=== PATIENT | female | born 1995 | race Asian ===

== ENCOUNTER 2022-01-29 20:35 | Emergency (ER) | payer OTHER ==
[~2022-01-29] VITALS: Ht 170.2 cm; Wt 92.5 kg
[2022-01-29 20:39] VITALS: TEMP 97.6
[2022-01-29 21:35] LABS: PLATELET COUNT 273 K/uL (152-353)
[2022-01-29 21:41] LABS: POTASSIUM 3.4 mmol/L (3.6-5.2)
[2022-01-29 22:35] VITALS: BP 162/93
== END 2022-01-29 22:36 | disposition home or self-care (01) ==
LOC: ED 20:35
PROVIDERS: Emergency Medicine
DX: I10 Essential (primary) hypertension (principal); G44.209 Tension-type headache, unspecified, not intractable; D64.89 Other specified anemias; F17.210 Nicotine dependence, cigarettes, uncomplicated
CPT/HCPCS: 36415; 80048; 84484; 85027; 93005; 99283